=== PATIENT | female | born 1950 | race Caucasian/White ===

== ENCOUNTER 2020-09-26 18:48 | Emergency (ER) | payer MEDICARE ==
[2020-09-26] MEDS ORDERED: HYDROmorphone 0.5 MG/0.5 ML Syringe IVPUSH ONE (19:38)
--- NOTE | 2020-09-26 19:44 | EDM.PDOC ---
ED HPI GENERAL MEDICAL PROBLEM - General Chief Complaint: General Stated Complaint: HERNIA PAIN Time Seen by Provider: 09/26/20 19:13 Source of Information: Reports: Patient History Limitations: Reports: No Limitations - History of Present Illness INITIAL COMMENTS - FREE TEXT/NARRATIVE: Mrs. Pinto is a pleasant 70-year-old woman who now presents to the ED with a concern that her left groin hernia, which she states she has had for about 30 years, has torn and gotten larger. She states that she has never previously had a medical or surgical evaluation of the lump to her left groin, that the diagnosis of a hernia is hers alone. She states that about 7 days ago, she felt a ripping sensation to her left groin when she stood up, and that ever since then, the lump has become larger than before and is tender to press on. She feels like it is going in and out. She also states that she has had generalized body aches on and off for many years, but that they became worse a little more than a year ago, when she moved to [place]. Something about the cold, she said. She states that she took an oxycodone and 2 extra strength either aspirin or Tylenol. Here in the ED, the patient's initial BP is found to be elevated at 161/87, otherwise, she is hemodynamically stable, afebrile, saturating 100% on room air. Other than the patient's left groin issue and generalized body aches, the patient denies having a recent fever, chills, sore throat, ear pain, nasal or sinus congestion, cough, dyspnea, chest pain, palpitations, nausea, vomiting, constipation, diarrhea, abdominal pain, urinary symptoms, recent weight gain or weight loss, recent bloody bowel movements or black bowel movements, headaches, or rashes. The patient does not have a PCP. She has not received an influenza vaccine this season, and declined an offer to receive one here in the ED. Generalized Pain Score (Numeric/FACES): 8 - Related Data Allergies Allergy/AdvReac Type Severity Reaction Status Date / Time codeine Allergy Severe Anaphylactic Verified 09/26/20 19:06 Shock Home Meds: Home Meds Aspirin [Aspirin EC] 81 mg PO DAILY 09/26/20 [History] Past Medical History HEENT History: Reports: Hard of Hearing, Other (See Below) (Edentulous) Cardiovascular History: Reports: CAD, [place] (x 1 - refused treatment) Respiratory History: Reports: Asthma (suspected, not tested, untreated), Pneumothorax Genitourinary History: Reports: Urinary Incontinence Musculoskeletal History: Reports: Osteoarthritis Psychiatric History: Reports: Other (See Below) (History of IV drug abuse) - Infectious Disease History Infectious Disease History: Reports: Hepatitis C (untreated) - Past Surgical History HEENT Surgical History: Reports: Oral Surgery (dental extractions) GI Surgical History: Reports: Other (See Below) (Exploratory laparotomy) Female Surgical History: Reports: Hysterectomy Social & Family History - Tobacco Use Tobacco Use Status *Q: Current Every Day Tobacco User Years of Tobacco use: 60 Packs/Tins Daily: 0.5 Packs/Tins Daily Comment: Down from 2 ppd - Caffeine Use Caffeine Use: Reports: Coffee, Soda - Alcohol Use Alcohol Use History: No - Recreational Drug Use Recreational Drug Use: Yes Drug Use in Last 12 Months: No Recreational Drug Type: Reports: Cocaine (last injected 2011), Heroin (last injected 1999), LSD (Acid) (tried once when 20 yrs old), Marijuana/Hashish (last smoked when 20 yrs old) - Living Situation & Occupation Living situation: Reports: , with Spouse Occupation: Retired ED ROS GENERAL - Review of Systems Review Of Systems: Comprehensive ROS is negative, except as noted in HPI. ED EXAM, GENERAL - Physical Exam Exam: See Below Exam Limited By: No Limitations General Appearance: Alert, WD/WN, No Apparent Distress Eye Exam: Bilateral Eye: EOMI, Normal Inspection Ears: Normal External Exam, Hearing Grossly Normal Nose: Normal Inspection Throat/Mouth: Normal Voice, No Airway Compromise, Other (Wearing a mask) Head: Atraumatic, Normocephalic Neck: Normal Inspection, Full Range of Motion Respiratory/Chest: No Respiratory Distress, Lungs Clear, Normal Breath Sounds, No Accessory Muscle Use Cardiovascular: Normal Peripheral Pulses, Regular Rate, Rhythm, No Edema, No Gallop, No JVD, No Murmur, No Rub Peripheral Pulses: 2+: Radial (L), Radial (R), Femoral (L), Femoral (R) GI/Abdominal: Normal Bowel Sounds, Soft, No Organomegaly, No Distention, No Abnormal Bruit, No Mass, Tender (The patient reports tenderness across her entire abdomen, but particular tenderness to her left lower quadrant. I was careful to clarify that she was not merely indicating that she had pain in her left lower quadrant that was not worse with palpation - she stated that palpation made it worse.), Hernia (small lef femoral, easily reduced, although the patient reported pain when done) Back Exam: Normal Inspection, Full Range of Motion, NT Extremities: Normal Inspection, Normal Range of Motion, No Pedal Edema, Normal Capillary Refill Neurological: Alert, Oriented, Normal Cognition, No Motor/Sensory Deficits Psychiatric: Normal Affect Skin Exam: Warm, Dry, Intact, Normal Color, No Rash Course - Vital Signs Last Recorded V/S: Last Vital Signs Temp 36.3 C 09/26/20 19:03 Pulse 80 09/26/20 19:03 Resp 20 09/26/20 19:03 BP 161/87 H 09/26/20 19:03 Pulse Ox 100 09/26/20 19:03 - Orders/Labs/Meds Orders: Active Orders 24 hr Category Date Time Status Abdomen Pelvis w Cont [CT] Stat Exams 09/26/20 19:34 Taken Sodium Chloride 0.9% [Normal Saline] 1,000 ml Med 09/26/20 19:45 Active IV ASDIRECTED Medication Orders Sodium Chloride (Normal Saline) 1,000 mls @ 100 mls/hr IV ASDIRECTED ANNIE Last Admin: 09/26/20 20:00 Dose: 100 mls/hr Documented by: SHAY Labs: Laboratory Tests 09/26/20 09/26/20 Range/Units 19:59 19:59 WBC 9.54 (3.98-10.04) K/mm3 RBC 4.41 (3.98-5.22) M/mm3 Hgb 14.1 (11.2-15.7) gm/dl Hct 43.1 (34.1-44.9) % MCV 97.7 H (79.4-94.8) fl MCH 32.0 (25.6-32.2) pg MCHC 32.7 (32.2-35.5) g/dl RDW Std Deviation 50.3 H (36.4-46.3) fL Plt Count 289 (182-369) K/mm3 MPV 11.4 (9.4-12.3) fl Neutrophils % (Manual) 37 L (40-60) % Band Neutrophils % 0 (0-10) % Lymphocytes % (Manual) 57 H (20-40) % Atypical Lymphs % 0 % Monocytes % (Manual) 4 (2-10) % Eosinophils % (Manual) 2 (0.7-5.8) % Basophils % (Manual) 0 L (0.1-1.2) Platelet Estimate Adequate RBC Morph Comment Normal Sodium 143 (136-145) mEq/L Potassium 4.1 (3.5-5.1) mEq/L Chloride 108 H (98-107) mEq/L Carbon Dioxide 24 (21-32) mEq/L Anion Gap 15.1 H (5-15) BUN 20 H (7-18) mg/dL Creatinine 0.7 (0.55-1.02) mg/dL Est Cr Clr Drug Dosing 46.17 mL/min Estimated GFR (MDRD) > 60 (>60) mL/min BUN/Creatinine Ratio 28.6 H (14-18) Glucose 73 L (80-115) mg/dL Calcium 8.9 (8.5-10.1) mg/dL Magnesium 1.8 (1.8-2.4) mg/dl Total Bilirubin 0.3 (0.2-1.0) mg/dL AST 96 H (15-37) U/L ALT 101 H (14-59) U/L Alkaline Phosphatase 89 (46-116) U/L Total Protein 7.4 (6.4-8.2) g/dl Albumin 3.4 (3.4-5.0) g/dl Globulin 4.0 gm/dL Albumin/Globulin Ratio 0.9 L (1-2) Meds: Medications Generic Name Dose Route Start Last Admin Trade Name Freq PRN Reason Stop Dose Admin Sodium Chloride 1,000 mls @ 100 mls/hr 09/26/20 19:45 09/26/20 20:00 Normal Saline IV 100 mls/hr ASDIRECTED ANNIE Administration Discontinued Medications Generic Name Dose Route Start Last Admin Trade Name Freq PRN Reason Stop Dose Admin Hydromorphone HCl 0.5 mg 09/26/20 19:38 09/26/20 20:01 Dilaudid IVPUSH 09/26/20 19:39 0.5 mg ONETIME ONE Administration - Re-Assessments/Exams Free Text/Narrative Re-Assessment/Exam: 09/26/20 19:39 The patient had a left femoral hernia which I was able to reduce without difficulty, although the patient complained of pain when I did so. I suspect that she has a low pain tolerance related to her prior IV drug abuse. She is also complaining of generalized abdominal tenderness, with particular tenderness to the left lower quadrant. I was careful to explain to the patient that I needed to know the difference between pain in her groin and tenderness to palpation, but the patient insisted that her left lower quadrant was tender to palpation, not just that I was palpating an area that was painful, without actual tenderness to palpation. I have therefore ordered a work-up that includes several blood tests and a CT of her abdomen and pelvis with oral and IV contrast. This will only evaluate her abdominal contents, but also exclude an incarcerated hernia. In the meantime, she will be given IV Dilaudid and IV fluid. 09/26/20 21:22 The patient's CBC is unremarkable. Her CMP is remarkable for an anion gap slightly elevated at 15.1, but with a bicarbonate normal at 24, a BUN slightly elevated at 20 with a Cr normal at 0.7, and mild hypoglycemia of 73. Her AST/ALT are mildly elevated at 96/101, respectively, with the remainder of her CMP being unremarkable. Her magnesium level is within normal limits at 1.8. 09/26/20 22:01 CT of the abdomen and pelvis with oral and IV contrast is read by vRkrista as: 1. Left femoral hernia containing fat. The fat within the hernia sac demonstrates minimal stranding/inflammation. Correlate to exclude developing incarcerated hernia. No bowel within the hernia sac. 2. See above for other details. 09/26/20 22:[address] Gibson at 22:02. He suspects that the fat stranding and inflammation seen on the CT scan is due to the earlier presence of the femoral hernia, which I reduced. Since it is not incarcerated, there is no emergency. He recommended that the patient call his office tomorrow morning to make an appointment to be seen this coming 09/28/2020. 09/26/20 22:12 Test results and my conversation with Dr. Gibson discussed with the patient. She is agreeable with the plan. Departure - Departure Time of Disposition: 22:14 Disposition: Home, Self-Care 01 Condition: Good Clinical Impression: Left femoral hernia without obstruction or gangrene - Discharge Information *PRESCRIPTION DRUG MONITORING PROGRAM REVIEWED*: Not Applicable *COPY OF PRESCRIPTION DRUG MONITORING REPORT IN PATIENT YESENIA: Not Applicable Referrals: PCP,None [Primary Care Provider] - Felipe Gibson MD [Physician] - Forms: ED Department Discharge Additional Instructions: You were seen in the emergency room for left groin pain associated with a lump. Work-up in the ER included several blood tests and a CT of your abdomen and pelvis with oral and IV contrast. Your work-up showed that you have a left femoral hernia, which I reduced (put back in place) in the ER. We recommend that you call the office of the Surgeon Dr. Felipe Gibson first thing tomorrow morning, to make an appointment to be seen by Dr. Gibson this coming 09/28/2020. In the meantime, you may take [id number] Tylenol or ibuprofen as needed for discomfort. If any other problems, please do not hesitate to return to the ER. Sepsis Event Note (ED) - Evaluation Sepsis Screening Result: No Definite Risk - Focused Exam Vital Signs: Vital Signs Temp Pulse Resp BP Pulse Ox 09/26/20 19:03 36.3 C 80 20 161/87 H 100 - My Orders Last 24 Hours: My Active Orders 09/26/20 19:34 Abdomen Pelvis w Cont [CT] Stat 09/26/20 19:45 Sodium Chloride 0.9% [Normal Saline] 1,000 ml IV ASDIRECTED - Assessment/Plan Last 24 Hours: My Active Orders 09/26/20 19:34 Abdomen Pelvis w Cont [CT] Stat 09/26/20 19:45 Sodium Chloride 0.9% [Normal Saline] 1,000 ml IV ASDIRECTED
[2020-09-26] MEDS ORDERED: Sodium Chloride 0.9% 1,000 ML IV SCH (19:45)
--- NOTE | 2020-09-27 08:37 | CT ---
CT abdomen and pelvis Technique: Multiple axial sections were obtained from above the dome of the diaphragm inferiorly through the pubic symphysis. Intravenous and oral contrast was utilized. Delayed images were also obtained through the pelvis. Reconstructed coronal and sagittal images were obtained. Comparison: No previous study is available. Findings: Visualized lung bases show mild motion artifact without anything definitely acute being seen. Visualized portions of the liver show no discrete abnormality. Spleen appears very small. Adrenal glands show no discrete nodule. Right kidney is slightly horizontally located as a normal variant. Kidneys show symmetric contrast enhancement. Delayed images show contrast within the distal ureters and within the bladder. Pancreas appears within normal limits. Aorta shows diffuse atherosclerotic calcification without aneurysm. No retroperitoneal adenopathy is seen. No mesenteric abnormalities are seen. Fat-containing left femoral hernia is noted. Slight increased density within the fat of this hernia is seen raising the possibility of mild inflammatory change. Bone window settings show severe degenerative change within the right hip and within the superior and inferior pubic rami on the right side. Old fracture deformity is seen within the right hip. Mild pectus excavatum deformity is seen. Spine shows scoliosis as well as degenerative change. Impression: 1. Left sided femoral hernia containing fat. This fat shows mild inflammatory change. 2. Old bony trauma within the right pelvis as noted above. 3. Other findings as described above which are nonacute. Diagnostic code #3 I agree with preliminary report from [facility], finalized on 09/26/20, 10:55 PM CHISEL TRIMMER
== END 2020-09-26 22:37 | disposition home or self-care (01) ==
LOC: JD.ED 18:48
DX: K41.90 Unilateral femoral hernia, without obstruction or gangrene, not specified as recurrent (principal); I25.10 Atherosclerotic heart disease of native coronary artery without angina pectoris; I25.2 Old myocardial infarction; F17.210 Nicotine dependence, cigarettes, uncomplicated; Z88.5 Allergy status to narcotic agent; Z79.82 Long term (current) use of aspirin
CPT/HCPCS: 36415; 74177; 80053; 83735; 85007; 85027; 96374; 99284; J1170; J7030

== ENCOUNTER 2021-10-24 14:42 | Emergency (ER) | payer MEDICARE, OTHER ==
[2021-10-24] MEDS ORDERED: Sodium Chloride 0.9% 10 ML Syringe FLUSH PRN ×2 (14:50→15:39)
[2021-10-24] MEDS ORDERED: Iopamidol 755 Mg/ML 100 ML Bottle IVPUSH ONE (15:39)
[2021-10-24] MEDS ORDERED: Sodium Chloride 0.9% 100 ML IV SCH (15:45)
[2021-10-24] MEDS ORDERED: Clopidogrel 75 MG Tab PO ONE (16:56)
[2021-10-24] MEDS ORDERED: Sodium Chloride 0.9% 1,000 ML ONE (17:01)
[2021-10-24] MEDS ORDERED: Sodium Chloride 0.9% 500 ML IV ONE (17:04)
[2021-10-24] MEDS ORDERED: Aspirin 81 MG Tab.Chew PO ONE (17:04)
[2021-10-24] MEDS ORDERED: LORazepam 2 MG/ML SDV IVPUSH ONE (17:39)
== END 2021-10-24 21:00 ==
LOC: JD.ED 14:42
DX: I63.9 Cerebral infarction, unspecified (principal); I25.10 Atherosclerotic heart disease of native coronary artery without angina pectoris; I25.2 Old myocardial infarction; Z88.5 Allergy status to narcotic agent; Z79.82 Long term (current) use of aspirin; Z20.822 Contact with and (suspected) exposure to COVID-19
CPT/HCPCS: 36415; 70450; 70496; 70498; 80053; 82947; 85025; 85610; 93005; 96374; 99285; A9270; J2060; J7030; Q9967; U0002

== ENCOUNTER 2024-02-04 12:49 | Emergency (ER) | payer MEDICARE, OTHER ==
[2024-02-04 13:36] LABS: BASOPHILS PERCENT AUTO 0.3 % (0.0-1.0); HEMATOCRIT 41.9 % (37.0-47.0); HEMOGLOBIN 14.6 gm/dl (12.0-16.0); IMMATURE GRAN ABSOLUTE AUTO 0.03 K/mm3 (0.00-0.05); IMMATURE GRAN PERCENT AUTO 0.3 % (0.0-0.4); LYMPHOCYTES ABSOLUTE AUTO 2.3 K/mm3 (1.0-4.8); LYMPHOCYTES PERCENT AUTO 26.3 % (24.0-44.0); MEAN CORPUSCULAR HEMOGLOBIN 31.9 pg (28.0-32.0); MEAN CORPUSCULAR HGB CONC 34.8 g/dl (32.0-36.0); MEAN CORPUSCULAR VOLUME 91.7 fl (83.0-99.0); MEAN PLATELET VOLUME 11.1 fl (9.4-12.3); MONOCYTES ABSOLUTE AUTO 1.1 K/mm3 (0.0-0.8); MONOCYTES PERCENT AUTO 12.4 % (0.0-8.0); NEUTROPHILS ABSOLUTE AUTO 5.3 K/mm3 (1.8-7.7); NEUTROPHILS PERCENT AUTO 60.7 % (41.0-71.0); PLATELET COUNT,PLT 233 K/mm3 (150-400); RED BLOOD CELL COUNT 4.57 M/mm3 (4.10-5.30); WHITE BLOOD CELL COUNT,WBC 8.81 K/mm3 (3.9-11.3)
[2024-02-04 14:00] LABS: A/G RATIO 0.9 (1-2); ALANINE AMINOTRANSFERASE,ALT 41 U/L (14-59); ALBUMIN 3.6 g/dl (3.4-5.0); ALKALINE PHOSPHATASE 77 U/L (46-116); ANION GAP 14.7 (5-15); ASPARTATE AMNIOTRANSFERASE,AST 37 U/L (15-37); BILIRUBIN TOTAL 0.5 mg/dL (0.2-1.0); BLOOD UREA NITROGEN,BUN 15 mg/dL (7-18); BUN/CREATININE RATIO 18.8 (14-18); CALCIUM 9.3 mg/dL (8.5-10.1); CARBON DIOXIDE,CO2 24 mEq/L (21-32); CHLORIDE,CL 101 mEq/L (98-107); CREATININE 0.8 mg/dL (0.55-1.02); ESTIMATED GFR 78 mL/min (>60); GLUCOSE RANDOM 129 mg/dL (70-99); POTASSIUM,K 3.7 mEq/L (3.5-5.1); PROTEIN TOTAL,TP 7.6 g/dl (6.4-8.2); SODIUM,NA 136 mEq/L (136-145); TROPONIN I HIGH SENSITIVITY 11 pg/mL (<=51)
[2024-02-04] MEDS: Sodium Chloride 0.9% 10 ML Syringe FLUSH PRN (16:00)
== END 2024-02-04 17:12 | disposition home or self-care (01) ==
LOC: EDBD → EDUNIT# → JD.ED 12:49
DX: R07.89 Other chest pain (principal); I25.10 Atherosclerotic heart disease of native coronary artery without angina pectoris; I25.2 Old myocardial infarction; J45.909 Unspecified asthma, uncomplicated; M19.90 Unspecified osteoarthritis, unspecified site; Z90.710 Acquired absence of both cervix and uterus; Z79.82 Long term (current) use of aspirin; Z88.5 Allergy status to narcotic agent
CPT/HCPCS: 36415; 71045; 80053; 84484; 85025; 85379; 93005; 99285; J3490; 93010; 99282

== ENCOUNTER 2024-08-10 12:41 | Emergency (ER) | payer MEDICARE, OTHER | END 2024-08-10 14:40 | disposition home or self-care (01) | LOC: JD.ED 12:41 | DX: R07.81 Pleurodynia (principal); I25.10 Atherosclerotic heart disease of native coronary artery without angina pectoris; I25.2 Old myocardial infarction; J44.9 Chronic obstructive pulmonary disease, unspecified; Z90.710 Acquired absence of both cervix and uterus; F17.210 Nicotine dependence, cigarettes, uncomplicated; Z88.5 Allergy status to narcotic agent; Z86.73 Personal history of transient ischemic attack (TIA), and cerebral infarction without residual deficits; W19.XXXA Unspecified fall, initial encounter | CPT/HCPCS: 71101-26-LT; 71101-LT; 99284 ==

== ENCOUNTER 2024-10-13 11:13 | Emergency (ER) | payer MEDICARE, OTHER ==
[2024-10-13 11:57] LABS: BASOPHILS ABSOLUTE AUTO 0.1 K/mm3 (0.0-0.2); BASOPHILS PERCENT AUTO 0.7 % (0.0-1.0); EOSINOPHILS ABSOLUTE AUTO 0.1 K/mm3 (0.0-0.4); EOSINOPHILS PERCENT AUTO 1.5 % (0.0-6.0); HEMATOCRIT 46.1 % (37.0-47.0); HEMOGLOBIN 15.4 gm/dl (12.0-16.0); IMMATURE GRAN ABSOLUTE AUTO 0.01 K/mm3 (0.00-0.05); IMMATURE GRAN PERCENT AUTO 0.1 % (0.0-0.4); LYMPHOCYTES ABSOLUTE AUTO 3.5 K/mm3 (1.0-4.8); LYMPHOCYTES PERCENT AUTO 46.2 % (24.0-44.0); MEAN CORPUSCULAR HEMOGLOBIN 31.1 pg (28.0-32.0); MEAN CORPUSCULAR HGB CONC 33.4 g/dl (32.0-36.0); MEAN CORPUSCULAR VOLUME 93.1 fl (83.0-99.0); MEAN PLATELET VOLUME 11.1 fl (9.4-12.3); MONOCYTES ABSOLUTE AUTO 0.8 K/mm3 (0.0-0.8); MONOCYTES PERCENT AUTO 10.6 % (0.0-8.0); NEUTROPHILS ABSOLUTE AUTO 3.1 K/mm3 (1.8-7.7); NEUTROPHILS PERCENT AUTO 40.9 % (41.0-71.0); PLATELET COUNT,PLT 235 K/mm3 (150-400); RED BLOOD CELL COUNT 4.95 M/mm3 (4.10-5.30); WHITE BLOOD CELL COUNT,WBC 7.46 K/mm3 (3.9-11.3)
[2024-10-13 12:13] LABS: A/G RATIO 0.9 (1-2); ALANINE AMINOTRANSFERASE,ALT 30 U/L (14-59); ALBUMIN 3.6 g/dl (3.4-5.0); ALKALINE PHOSPHATASE 87 U/L (46-116); ANION GAP 11.9 (5-15); ASPARTATE AMNIOTRANSFERASE,AST 28 U/L (15-37); BILIRUBIN TOTAL 0.5 mg/dL (0.2-1.0); BLOOD UREA NITROGEN,BUN 11 mg/dL (7-18); BUN/CREATININE RATIO 15.7 (14-18); C-REACTIVE PROTEIN 0.05 mg/dL (<0.30); CARBON DIOXIDE,CO2 25 mEq/L (21-32); CHLORIDE,CL 107 mEq/L (98-107); CREATININE 0.7 mg/dL (0.55-1.02); ESTIMATED GFR 91 mL/min (>60); GLUCOSE RANDOM 100 mg/dL (70-99); MAGNESIUM 1.5 mg/dL (1.8-2.4); POTASSIUM,K 3.9 mEq/L (3.5-5.1); PROTEIN TOTAL,TP 7.7 g/dl (6.4-8.2); SODIUM,NA 140 mEq/L (136-145)
[2024-10-13] MEDS: Ketorolac 15 MG/ML SDV IVPUSH ONE (13:22)
[2024-10-13 18:02] LABS: APPEARANCE,URINE CLOUDY (Clear); BILIRUBIN,URINE NEGATIVE (Negative); COLOR,URINE YELLOW (Yellow); GLUCOSE,URINE NEGATIVE (Negative); KETONES,URINE NEGATIVE (Negative); LEUKOCYTE ESTERASE,URINE NEGATIVE (Negative); NITRITE,URINE NEGATIVE (Negative); OCCULT BLOOD,URINE NEGATIVE (Negative); PH,URINE 5.5 (5.0-8.0); PROTEIN,URINE TRACE (Negative); UROBILINOGEN,URINE 0.2 (0.2-1.0)
[2024-10-13 18:41] LABS: BACTERIA,URINE MANY /hpf (FEW); CALCIUM OXALATE CRYSTALS,URINE MODERATE; MUCUS,URINE MODERATE /hpf (FEW); RBC,URINE 0-5 /hpf (0-5); WBC,URINE 0-5 /hpf (0-5)
== END 2024-10-13 17:30 | disposition home or self-care (01) ==
LOC: JD.ED 11:13
DX: S22.31XA Fracture of one rib, right side, initial encounter for closed fracture (principal); I25.2 Old myocardial infarction; I25.10 Atherosclerotic heart disease of native coronary artery without angina pectoris; J44.89 Other specified chronic obstructive pulmonary disease; Z86.73 Personal history of transient ischemic attack (TIA), and cerebral infarction without residual deficits; Z88.5 Allergy status to narcotic agent; Z79.899 Other long term (current) drug therapy; Z90.710 Acquired absence of both cervix and uterus; W18.39XA Other fall on same level, initial encounter
CPT/HCPCS: 36415; 71045; 80053; 81001; 83735; 85025; 86140; 96374; 99283; J1885

== ENCOUNTER 2024-11-20 19:48 | Emergency (ER) | payer MEDICARE, OTHER | END 2024-11-20 22:20 | disposition home or self-care (01) | LOC: JD.ED 19:48 | DX: S52.501A Unspecified fracture of the lower end of right radius, initial encounter for closed fracture (principal); I25.10 Atherosclerotic heart disease of native coronary artery without angina pectoris; I25.2 Old myocardial infarction; J44.89 Other specified chronic obstructive pulmonary disease; Z90.710 Acquired absence of both cervix and uterus; Z86.73 Personal history of transient ischemic attack (TIA), and cerebral infarction without residual deficits; Z88.5 Allergy status to narcotic agent; Z79.899 Other long term (current) drug therapy; W19.XXXA Unspecified fall, initial encounter | CPT/HCPCS: 73110-26-RT; 73110-RT; 99283 ==

== ENCOUNTER 2024-12-07 17:49 | Emergency (ER) | payer MEDICARE, OTHER ==
[2024-12-07 18:37] LABS: APPEARANCE,URINE CLEAR (Clear); BILIRUBIN,URINE NEGATIVE (Negative); COLOR,URINE YELLOW (Yellow); GLUCOSE,URINE NEGATIVE (Negative); KETONES,URINE NEGATIVE (Negative); LEUKOCYTE ESTERASE,URINE NEGATIVE (Negative); NITRITE,URINE NEGATIVE (Negative); OCCULT BLOOD,URINE NEGATIVE (Negative); PROTEIN,URINE NEGATIVE (Negative)
== END 2024-12-07 20:03 | disposition home or self-care (01) ==
LOC: JD.ED 17:49
DX: L89.141 Pressure ulcer of left lower back, stage 1 (principal); I25.10 Atherosclerotic heart disease of native coronary artery without angina pectoris; I25.2 Old myocardial infarction; J44.89 Other specified chronic obstructive pulmonary disease; Z88.5 Allergy status to narcotic agent; Z86.73 Personal history of transient ischemic attack (TIA), and cerebral infarction without residual deficits; Z86.16 Personal history of COVID-19
CPT/HCPCS: 81003; 99283

== ENCOUNTER 2024-12-11 18:08 | Emergency (ER) | payer MEDICARE, OTHER ==
[2024-12-11 18:41] LABS: BASOPHILS ABSOLUTE AUTO 0.1 K/mm3 (0.0-0.2); BASOPHILS PERCENT AUTO 0.5 % (0.0-1.0); EOSINOPHILS ABSOLUTE AUTO 0.1 K/mm3 (0.0-0.4); EOSINOPHILS PERCENT AUTO 0.5 % (0.0-6.0); HEMATOCRIT 47.1 % (37.0-47.0); HEMOGLOBIN 15.6 gm/dl (12.0-16.0); IMMATURE GRAN ABSOLUTE AUTO 0.03 K/mm3 (0.00-0.05); IMMATURE GRAN PERCENT AUTO 0.3 % (0.0-0.4); LYMPHOCYTES ABSOLUTE AUTO 1.5 K/mm3 (1.0-4.8); LYMPHOCYTES PERCENT AUTO 16.6 % (24.0-44.0); MEAN CORPUSCULAR HEMOGLOBIN 31.6 pg (28.0-32.0); MEAN CORPUSCULAR HGB CONC 33.1 g/dl (32.0-36.0); MEAN CORPUSCULAR VOLUME 95.5 fl (83.0-99.0); MEAN PLATELET VOLUME 11.2 fl (9.4-12.3); NEUTROPHILS ABSOLUTE AUTO 6.6 K/mm3 (1.8-7.7); NEUTROPHILS PERCENT AUTO 71.1 % (41.0-71.0); PLATELET COUNT,PLT 210 K/mm3 (150-400); RED BLOOD CELL COUNT 4.93 M/mm3 (4.10-5.30); WHITE BLOOD CELL COUNT,WBC 9.25 K/mm3 (3.9-11.3)
[2024-12-11 19:11] LABS: A/G RATIO 0.8 (1-2); ALANINE AMINOTRANSFERASE,ALT 20 U/L (14-59); ALBUMIN 3.3 g/dl (3.4-5.0); ALKALINE PHOSPHATASE 108 U/L (46-116); ANION GAP 15.8 (5-15); ASPARTATE AMNIOTRANSFERASE,AST 26 U/L (15-37); BILIRUBIN TOTAL 0.2 mg/dL (0.2-1.0); BLOOD UREA NITROGEN,BUN 14 mg/dL (7-18); CARBON DIOXIDE,CO2 23 mEq/L (21-32); CHLORIDE,CL 106 mEq/L (98-107); CREATINE KINASE,CK 54 U/L (26-192); CREATININE 0.7 mg/dL (0.55-1.02); ESTIMATED GFR 91 mL/min (>60); GLUCOSE RANDOM 99 mg/dL (70-99); LIPASE 54 U/L (16-77); MAGNESIUM 1.5 mg/dL (1.8-2.4); POTASSIUM,K 3.8 mEq/L (3.5-5.1); PROTEIN TOTAL,TP 7.4 g/dl (6.4-8.2); SODIUM,NA 141 mEq/L (136-145)
[2024-12-11 19:49] LABS: APPEARANCE,URINE CLEAR (Clear); BILIRUBIN,URINE NEGATIVE (Negative); COLOR,URINE YELLOW (Yellow); GLUCOSE,URINE TRACE (Negative); KETONES,URINE NEGATIVE (Negative); LEUKOCYTE ESTERASE,URINE NEGATIVE (Negative); NITRITE,URINE NEGATIVE (Negative); OCCULT BLOOD,URINE TRACE-INTACT (Negative); PH,URINE 5.5 (5.0-8.0); PROTEIN,URINE NEGATIVE (Negative); UROBILINOGEN,URINE 0.2 (0.2-1.0)
[2024-12-11 19:59] LABS: BARBITURATE SCREEN,URINE NEGATIVE (CUTOFF=200); BENZODIAZEPINES SCREEN,URINE NEGATIVE (CUTOFF=150); BUPRENORPHINE SCREEN,URINE NEGATIVE (CUTOFF=10); METHADONE SCREEN, URINE NEGATIVE (CUTOFF=200); METHAMPHETAMINES SCREEN, URINE NEGATIVE (CUTOFF=500); OXYCODONE SCREEN,URINE NEGATIVE (CUT0FF=100); THC SCREEN,URINE 20 NG/ML NEGATIVE (CUTOFF=50)
[2024-12-11] MEDS: Sodium Chloride 0.9% 1,000 ML IV SCH (20:13)
[2024-12-11 20:14] LABS: AMPHETAMINES SCREEN, URINE NEGATIVE (CUTOFF=500)
[2024-12-11] MEDS: LORazepam 2 MG/ML SDV IVPUSH ONE (20:18)
[2024-12-11] MEDS: droPERidol 2.5 MG/ML SDV IVPUSH ONE (20:21)
[2024-12-11] MEDS: Sodium Chloride 0.9% 10 ML Syringe FLUSH PRN ×2 (20:22→20:48)
[2024-12-11] MEDS: Iopamidol 612 MG/ML 100 ML Bottle IVPUSH ONE (20:48)
[2024-12-11 21:06] LABS: RBC,URINE 0-5 /hpf (0-5); WBC,URINE 0-5 /hpf (0-5)
[2024-12-11 21:07] LABS: BACTERIA,URINE FEW /hpf (FEW); MUCUS,URINE MODERATE /hpf (FEW)
[2024-12-11] MEDS: Magnesium Sulf/Wat 2 GM/50 mL 2 GM in Premix Bag 1 BAG IV ONE (21:26)
== END 2024-12-11 23:38 | disposition home or self-care (01) ==
LOC: JD.ED 18:08
DX: E83.42 Hypomagnesemia (principal); Z46.89 Encounter for fitting and adjustment of other specified devices; Z86.73 Personal history of transient ischemic attack (TIA), and cerebral infarction without residual deficits; I25.10 Atherosclerotic heart disease of native coronary artery without angina pectoris; I25.2 Old myocardial infarction; J44.89 Other specified chronic obstructive pulmonary disease; Z86.16 Personal history of COVID-19; Z90.710 Acquired absence of both cervix and uterus; Z88.5 Allergy status to narcotic agent
CPT/HCPCS: 29105; 36415; 70450; 71045; 74177; 80053; 80143; 80306; 80307; 81001; 82140; 82550; 83605; 83690; 83735; 84484; 85025; 87428; 93005; 96365; 96375; 99285; J1790; J2060; J3475; J7030; Q9967

== ENCOUNTER 2024-12-20 13:30 | Emergency (ER) | payer MEDICARE, OTHER ==
[2024-12-20] MEDS ORDERED: Sodium Chloride 0.9% 10 ML Syringe FLUSH PRN (13:52)
[2024-12-20] MEDS: Albuterol/Ipratropium 3.0-0.5 MG/3 ML Neb Soln NEB ONE (14:10)
[2024-12-20 14:23] LABS: BASOPHILS PERCENT AUTO 0.3 % (0.0-1.0); EOSINOPHILS ABSOLUTE AUTO 0.1 K/mm3 (0.0-0.4); EOSINOPHILS PERCENT AUTO 0.8 % (0.0-6.0); HEMATOCRIT 44.7 % (37.0-47.0); HEMOGLOBIN 14.9 gm/dl (12.0-16.0); IMMATURE GRAN ABSOLUTE AUTO 0.06 K/mm3 (0.00-0.05); IMMATURE GRAN PERCENT AUTO 0.6 % (0.0-0.4); LYMPHOCYTES ABSOLUTE AUTO 1.4 K/mm3 (1.0-4.8); MEAN CORPUSCULAR HEMOGLOBIN 31.5 pg (28.0-32.0); MEAN CORPUSCULAR HGB CONC 33.3 g/dl (32.0-36.0); MEAN CORPUSCULAR VOLUME 94.5 fl (83.0-99.0); MEAN PLATELET VOLUME 10.4 fl (9.4-12.3); MONOCYTES ABSOLUTE AUTO 1.2 K/mm3 (0.0-0.8); MONOCYTES PERCENT AUTO 12.5 % (0.0-8.0); NEUTROPHILS ABSOLUTE AUTO 6.7 K/mm3 (1.8-7.7); NEUTROPHILS PERCENT AUTO 70.8 % (41.0-71.0); RED BLOOD CELL COUNT 4.73 M/mm3 (4.10-5.30); WHITE BLOOD CELL COUNT,WBC 9.51 K/mm3 (3.9-11.3)
[2024-12-20 14:24] LABS: PLATELET COUNT,PLT 384 K/mm3 (150-400)
[2024-12-20 14:45] LABS: A/G RATIO 0.5 (1-2); ALBUMIN 2.6 g/dl (3.4-5.0); ANION GAP 14.2 (5-15); BILIRUBIN TOTAL 0.4 mg/dL (0.2-1.0); C-REACTIVE PROTEIN 2.26 mg/dL (<0.30); CALCIUM 9.4 mg/dL (8.5-10.1); CREATININE 0.8 mg/dL (0.55-1.02); EST CRCL DRUG DOSING (CG) 43.5 mL/min; MAGNESIUM 1.7 mg/dL (1.8-2.4); POTASSIUM,K 3.2 mEq/L (3.5-5.1); PROTEIN TOTAL,TP 7.6 g/dl (6.4-8.2)
[2024-12-20 16:19] LABS: APPEARANCE,URINE CLEAR (Clear); BILIRUBIN,URINE 1+ (Negative); COLOR,URINE YELLOW (Yellow); GLUCOSE,URINE NEGATIVE (Negative); KETONES,URINE NEGATIVE (Negative); LEUKOCYTE ESTERASE,URINE NEGATIVE (Negative); NITRITE,URINE NEGATIVE (Negative); OCCULT BLOOD,URINE 2+ (Negative); PH,URINE 5.5 (5.0-8.0); PROTEIN,URINE 2+ (Negative)
[2024-12-20 16:35] LABS: BARBITURATE SCREEN,URINE NEGATIVE (CUTOFF=200); BENZODIAZEPINES SCREEN,URINE NEGATIVE (CUTOFF=150); BUPRENORPHINE SCREEN,URINE NEGATIVE (CUTOFF=10); METHADONE SCREEN, URINE NEGATIVE (CUTOFF=200); METHAMPHETAMINES SCREEN, URINE NEGATIVE (CUTOFF=500); OXYCODONE SCREEN,URINE NEGATIVE (CUT0FF=100); THC SCREEN,URINE 20 NG/ML NEGATIVE (CUTOFF=50)
[2024-12-20 16:52] LABS: AMPHETAMINES SCREEN, URINE NEGATIVE (CUTOFF=500)
[2024-12-20 17:29] LABS: WBC,URINE 0-5 /hpf (0-5)
[2024-12-20 17:30] LABS: BACTERIA,URINE MODERATE /hpf (FEW); HYALINE CASTS,URINE 0-5 /lpf (0-5); MUCUS,URINE MANY /hpf (FEW)
== END 2024-12-20 18:19 | disposition home or self-care (01) ==
LOC: JD.ED 13:30
DX: R53.1 Weakness (principal); Z46.89 Encounter for fitting and adjustment of other specified devices; I25.2 Old myocardial infarction; I25.10 Atherosclerotic heart disease of native coronary artery without angina pectoris; Z86.16 Personal history of COVID-19; Z87.891 Personal history of nicotine dependence; Z88.5 Allergy status to narcotic agent; Z86.73 Personal history of transient ischemic attack (TIA), and cerebral infarction without residual deficits
CPT/HCPCS: 36415; 71045; 80053; 80306; 80307; 81001; 82947; 83735; 84484; 85025; 86140; 87428; 93005; 94640; 99285; A9270; C1758